=== PATIENT | female | born 2000 | race Caucasian/White ===

== ENCOUNTER 2020-01-30 15:51 | Emergency (ER) | payer MEDICAID, SELFPAY ==
[2020-01-30 16:05] VITALS: BP 134/71; PULSE 88; RESP 16; TEMP 37.3; O2SAT 99
--- NOTE | 2020-01-30 16:20 | ED.URI ---
HPI - URI/Sore Throat General Chief Complaint: Upper Respiratory Infection Stated Complaint: sore throat Time Seen by Provider: 01/30/20 16:15 Source: patient and RN notes reviewed Mode of arrival: ambulatory Limitations: no limitations History of Present Illness HPI Narrative: 19-year-old female who presents to [facility] care with complaints of sore throat for 1 week duration. Patient has swelling and redness to bilateral tonsils with exudates also bilateral lymphadenopathy to neck. Patient denies any sinus congestion, drainage, ear pain, nausea or vomiting or any acute fevers or headaches. Patient states no extreme fatigue or myalgia. Patient does have history of previous strep throat. MD elicited complaint: sore throat and other (enlarged lymph glands) Onset (ago): week(s) (1) Consistency: constant Severity: moderate Pain scale (0-10): 6 Able to tolerate fluids by mouth: Yes Exacerbating factors: swallowing Relieving factors: nothing Associated symptoms: sore throat and other (bilateral neck lymphadenopathy) Treatments prior to arrival: acetaminophen Related Data Allergies Allergy/AdvReac Type Severity Reaction Status Date / Time No Known Allergies Allergy Verified 01/30/20 15:55 Review of Systems Review of Systems: Narrative: CONSTITUTIONAL: Denies fever, chills, or sweats. EYES: Denies visual changes, redness, or discharge. ENT: Denies rhinorrhea, congestion, positive for sore throat, denies otalgia. CARDIOVASCULAR: Denies chest pain, palpitations, or edema. RESPIRATORY: Denies cough or dyspnea. GASTROINTESTINAL: Denies abdominal pain, nausea, vomiting, or diarrhea. GENITOURINARY: Denies dysuria or hematuria. SKIN: Denies rash or itching. MUSCULOSKELETAL: Denies back pain, joint pain, or myalgia. NEUROLOGIC: Denies headache, numbness, or weakness. PSYCHIATRIC: Denies anxiety or depression. All systems reviewed & are unremarkable except as noted in HPI and below PMFSH Past Medical History Medical History (Updated 01/31/20 @ 21:21 by Padmini Wayne NP) Strep pharyngitis Surgical History Surgical History (Updated 01/31/20 @ 21:15 by Padmini Wayne NP) Hx of appendectomy Social History Social History (Updated 01/31/20 @ 21:16 by Padmini Wayne NP) Smoking status: Never smoker Living arrangements: with family Gender identity (if verbalized by the patient): Female Comments At time of signature, agree with nursing past medical, surgical, social history. There is no relevant family history pertinent to the presenting complaint Exam Narrative: Exam Narrative: GENERAL: ill-appearing, well-nourished, and in no acute distress. HEAD: Normocephalic, atraumatic. EYES: PERRLA and EOMI. ENT: Nares clear, no rhinorrhea or epistaxis. Mucous membranes moist.TM's normal with good light reflex, throat red with swollen red tonsils with white exudates to both tonsils NECK: Supple.lymphadenopathy present CHEST: Clear to auscultation. No respiratory distress.SAO2 99% on room air HEART: Regular rate and rhythm. No murmur heard. Normal peripheral pulses. ABDOMEN: Soft, nontender, nondistended, normal active bowel sounds. EXTREMITIES: Normal range of motion. No edema. SKIN: Warm, dry, no rash. NEURO: No focal deficits. Alert and oriented x3. Course Vital Signs Vital signs: Vital Signs Temperature 37.3 C 01/30/20 16:05 Pulse Rate 88 01/30/20 16:05 Respiratory Rate 16 01/30/20 16:05 Blood Pressure 134/71 01/30/20 16:05 Pulse Oximetry 99 01/30/20 16:05 Temperature 37.3 C 01/30/20 16:05 Pulse Rate 88 01/30/20 16:05 Respiratory Rate 16 01/30/20 16:05 Blood Pressure 134/71 01/30/20 16:05 Pulse Oximetry 99 01/30/20 16:05 MDM - URI/Sore Throat Differential Diagnosis Differential diagnosis: Likely pharyngitis and other (strep pharyngitis,tonsillitis, mononucleosis) Medical Records Attestation: I reviewed the patient's medical records. Lab Data Attestation: I reviewed the pa
== END 2020-01-30 16:58 | disposition home or self-care (01) ==
PROVIDERS: Emergency Provider Registered Nurse
DX: B27.90 Infectious mononucleosis, unspecified without complication (principal); J03.90 Acute tonsillitis, unspecified
CPT/HCPCS: 36416; 86308; 87081; 87880; 99203; G0463

== ENCOUNTER 2020-12-20 14:25 | Emergency (ER) | payer BC, SELFPAY ==
[2020-12-20 14:28] VITALS: BP 146/69; PULSE 62; RESP 20; TEMP 36.5; O2SAT 100
--- NOTE | 2020-12-20 14:28 | ED.SKABFB ---
HPI - Skin/Abscess/Foreign Bdy General Chief complaint: Skin/Abscess/Foreign Body Stated complaint: RASH Time Seen by Provider: 12/20/20 14:31 Source: patient and RN notes reviewed Mode of arrival: ambulatory Limitations: no limitations History of Present Illness HPI narrative: 20-year-old female presents with concern for rash. Reports multiple raised areas of rash that are itchy. Reports she is using [id number] antifungal cream for 1 week but the rash continues to spread. She denies any swollen lips, swollen tongue, difficulty swallowing, fever, recent tick bites, fever, body aches, malaise. complaint: rash Related Data Allergies Allergy/AdvReac Type Severity Reaction Status Date / Time No Known Allergies Allergy Verified 01/30/20 15:55 Review of Systems Review of Systems: Narrative: CONSTITUTIONAL: Denies malaise, chills, sweats, or fever. EYES: Denies visual changes, redness, or discharge. ENT: Denies swollen lips, swollen tongue CARDIOVASCULAR: Denies chest pain, palpitations, or edema. RESPIRATORY: Denies cough or dyspnea. GASTROINTESTINAL: Denies abdominal pain, nausea, vomiting, diarrhea SKIN: Reports itchy areas of rash that continue to spread MUSCULOSKELETAL: Denies myalgia. NEUROLOGIC: Denies headache. All systems reviewed & are unremarkable except as noted in HPI and below PMFSH Past Medical History Medical History (Updated 12/20/20 @ 14:40 by Katiuska Mistry NP) Strep pharyngitis Surgical History Surgical History (Updated 01/31/20 @ 21:15 by Padmini Wayne NP) Hx of appendectomy Social History Social History (Updated 01/31/20 @ 21:16 by Padmini Wayne NP) Smoking status: Never smoker Gender identity (if verbalized by the patient): Female Comments At time of signature, agree with nursing past medical, surgical, social and family history. There is no relevant family history pertinent to the presenting complaint Exam Narrative: Exam Narrative: GENERAL: Well-appearing, well-nourished, and in no acute distress. HEAD: Normocephalic, atraumatic. EYES: PERRLA, conjunctivae clear, and EOMI. ENT: Mucous membranes moist. Oropharynx without edema, erythema or lesions. NECK: Supple. No lymphadenopathy CHEST: Clear to auscultation. No respiratory distress. HEART: Regular rate and rhythm. SKIN: Warm, dry. 15 annular areas of rash ranging from light pink to dark red color, generalized consistent with tinea NEURO: Alert and oriented x3. PSYCH: Normal mood and affect Course Course Emergency Course: Patient is aware of diagnosis, understands and agrees to treatment plan. Anticipatory guidance given. Patient agrees to follow-up as directed and is aware of reasons to seek care at the emergency department. Portions of this record may have been created with voice recognition software Vital Signs Vital signs: Vital Signs Temperature 97.7 F 12/20/20 14:28 Pulse Rate 62 12/20/20 14:28 Respiratory Rate 20 12/20/20 14:28 Blood Pressure 146/69 H 12/20/20 14:28 Pulse Oximetry 100 12/20/20 14:28 Temperature 97.7 F 12/20/20 14:28 Pulse Rate 62 12/20/20 14:28 Respiratory Rate 20 12/20/20 14:28 Blood Pressure 146/69 H 12/20/20 14:28 Pulse Oximetry 100 12/20/20 14:28 Reviewed. MDM - Skin/Abscess/Foreign Bdy MDM Narrative Medical decision making narrative: Does not appear at this time to be erythema multiforme, bullous, SJS, TEN; no evidence at this time to suggest RMSF, endocarditis or Lyme disease; patient looks well, nontoxic and is tolerating oral intake; no neurologic signs or symptoms; no headache, photophobia or neck pain; afebrile; appropriate for initial outpatient treatment; discussed the importance of follow-up, patient agrees; question, viral exanthema, contact dermatitis, allergic dermatitis, eczema, urticaria, tinea. No soft palate or uvula edema, no tongue, lip edema or other mucosal involvement, no respiratory compromise, no stridor, no wheezing
== END 2020-12-20 14:47 | disposition home or self-care (01) ==
PROVIDERS: Emergency Provider Nurse Practitioner
DX: B35.4 Tinea corporis (principal)
CPT/HCPCS: 99213; G0463

== ENCOUNTER 2023-11-08 18:36 | Emergency (ER) | payer BC, MEDICAID, SELFPAY ==
[2023-11-08 18:39] VITALS: BP 149/99; PULSE 95; RESP 17; TEMP 36.4; O2SAT 98
--- NOTE | 2023-11-08 18:51 | ED.GENADULT ---
HPI - General Adult General Chief complaint: Wound/Laceration Stated complaint: head lac Time Seen by Provider: 11/08/23 18:41 History of Present Illness HPI narrative: the patient is a 23-year-old woman who had a metal tool accidentally dropped from a shelf onto her head resulting in a left posterior scalp abrasion. There was bleeding. Last tetanus unknown, likely 10 years ago. No other injuries. No headache. No motor or sensory deficit. No other complaints. No nausea vomiting. Related Data Home Medications Medication Instructions Recorded Confirmed No Home Medications 11/08/23 11/08/23 Allergies Allergy/AdvReac Type Severity Reaction Status Date / Time No Known Allergies Allergy Verified 11/08/23 18:37 Review of Systems Review of Systems: All systems reviewed & are unremarkable except as noted in HPI and below Constitutional: Constitutional: Denies chills, Denies excessive sweating, Denies fatigue, Denies fever(s), Denies headache(s) and Denies weakness Eyes: Eyes: Denies change in vision and Denies photophobia ENT: Denies dysphagia, Denies dizziness, Denies headache(s), Denies lip swelling, Denies nasal congestion, Denies sore throat and Denies tongue swelling Cardiovascular: Cardiovascular: Denies chest pain, Denies syncope, Denies rapid heart rate and Denies dyspnea Respiratory: Respiratory: Denies cough, Denies dyspnea and Denies wheezing Gastrointestinal: Gastrointestinal: Denies abdominal pain, Denies constipation, Denies dysphagia, Denies diarrhea, Denies nausea and Denies vomiting Genitourinary: Genitourinary: Denies hematuria, Denies urinary frequency, Denies dysuria and Denies urinary urgency Musculoskeletal: Musculoskeletal: Denies back pain, Denies myalgias, Denies arthralgias, Denies joint swelling and Denies numbness Integumentary/Breasts: Skin/Breast: Denies pruritus, Denies erythema and Denies rash Neurologic: Denies confusion, Denies dizziness, Denies syncope, Denies headache(s), Denies focal weakness, Denies numbness and Denies weakness Psychiatric: Psychiatric: Denies anxiety and Denies confusion Endocrine: Endocrine: Denies excessive sweating and Denies fatigue Hematologic/Lymphatic: Hematologic/Lymphatic: Denies easy bleeding and Denies easy bruising Allergic/Immunologic: Allergic/Immunologic: Denies lip swelling, Denies tongue swelling and Denies wheezing PMFSH Past Medical History Medical History Strep pharyngitis Surgical History Surgical History Hx of appendectomy Social History Social History Smoking status: Never smoker Living arrangements: with family Gender identity (if verbalized by the patient): Female Exam Const: General: healthy appearing, no acute distress, alert and well nourished Nutritional Appearance: well nourished Orientation/consciousness: patient oriented x3 Limitations: no limitations HENMT: Head: normal to inspection Ears: external ears normal Face/Nose/Sinus: normal facial exam Face and sinus: normal facial exam Mouth: Yes moist mucous membranes Throat: posterior oropharynx normal Eyes: Conjunctivae: conjunctivae normal Pupils: Equal, round and reactive pupils present EOM: EOMs intact bilaterally Neck: Neck: normal visual inspection and no meningeal signs Chest: Chest palpation & inspection: normal inspection of the chest and no tenderness Resp: Effort & Inspection: normal respiratory effort and not labored Auscultation: clear to auscultation bilaterally, no crackles, no rhonchi and no wheezes Cardio: Rate: regular rate Rhythm: regular rhythm Heart sounds: no murmurs GI: Inspection: non-distended GI Palp: Yes Soft to palpation, No Tenderness to palpation present (GI), No Guarding due to palpation present (GI) and No Rebound tenderness present : General: Yes no C
[2023-11-08 19:15] VITALS: BP 148/82; PULSE 80; RESP 17; TEMP 36.6; O2SAT 99
== END 2023-11-08 19:15 | disposition home or self-care (01) ==
LOC: CHSED 19:00
PROVIDERS: Emergency Provider Emergency Medicine
DX: S00.01XA Abrasion of scalp, initial encounter (principal); W20.8XXA Other cause of strike by thrown, projected or falling object, initial encounter
CPT/HCPCS: 99282